=== PATIENT | female | born 2000 | race African-American/Black ===

== ENCOUNTER 2022-01-25 18:32 | Emergency (ER) | payer OTHER, SELFPAY ==
--- NOTE | ~2022-01-25 | CT_ITS ---
EXAMINATION: CT brain wo con DATE: 01/26/2022 05:30 INDICATION: Altered mental status. TECHNIQUE: Computed tomography (CT) of the head was performed without intravenous contrast. The mA wa s adjusted according to patient size. Iterative reconstruction technique was employed. The dose-lengt h product was 605.33 mGy-cm. COMPARISON: None FINDINGS: There is no intracranial hemorrhage, acute infarction, or abnormal intracranial mass lesion . The ventricles are normal in size. There is mild mucosal thickening in the paranasal sinuses. The o rbits are normal. The mastoid air cells are normal. IMPRESSION: 1. Normal brain. Reviewed, dictated and finalized at location A. IMPRESSION: 1. Normal brain.
[2022-01-25 18:58] VITALS: BP 134/88; PULSE 82; RESP 16; TEMP 37.2; O2SAT 99
--- NOTE | 2022-01-25 19:06 | ED.GENADULT ---
HPI - General Adult General Chief complaint: Psychiatric Symptoms <Ananth Ca MD - Last Filed: 01/25/22 21:54> Stated complaint: MENTAL BREAK? <Ananth Ca MD - Last Filed: 01/25/22 21:54> Time Seen by Provider: 01/25/22 18:40 <Ananth Ca MD - Last Filed: 01/25/22 21:54> History of Present Illness HPI narrative: 21-year-old female presented emerged department for evaluation of a change in her mental status. Family states that over the last 2 to 3 days patient has had more erratic behavior. Patient has been more social and is hugging more. They also stated that she has been more agitated and has been pacing and doodling. Patient denies taking any drugs or medications with the intent of self-harm. Patient did not answer the question about her being suicidal. Patient does admit to smoking marijuana. Patient did have her mother in October. <Ananth Ca MD - Last Filed: 01/25/22 21:54> Related Data Allergies/adverse reactions: Allergies Allergy/AdvReac Type Severity Reaction Status Date / Time No Known Allergies Allergy Verified 01/26/22 01:07 <Ananth Ca MD - Last Filed: 01/25/22 21:54> Review of Systems Review of Systems: CONSTITUTIONAL: Denies fever, chills, or sweats. EYES: Denies visual changes, redness, or discharge. ENT: Denies rhinorrhea, congestion, sore throat, or otalgia. CARDIOVASCULAR: Denies chest pain, palpitations, or edema. RESPIRATORY: Denies cough or dyspnea. GASTROINTESTINAL: Denies abdominal pain, nausea, vomiting, or diarrhea. GENITOURINARY: Denies dysuria or hematuria. SKIN: Denies rash or itching. MUSCULOSKELETAL: Denies back pain, joint pain, or myalgia. NEUROLOGIC: Denies headache, numbness, or weakness. PSYCHIATRIC: Change in behavior, see HPI <Ananth Ca MD - Last Filed: 01/25/22 21:54> PMFSH Social History Social History: Social History Substance use type: marijuana <Ananth Ca MD - Last Filed: 01/25/22 21:54> Exam Narrative: APPEARANCE: Well appearing, no pain, no distress, well-nourished. HEAD: normocephalic, atraumatic. EYES: PERRLA/EOMI, conjunctivae clear. NOSE: Normal no drainage EARS:TMS clear with good light reflex. THROAT: Pharynx clear, no exudate. NECK: Supple. No adenopathy, no masses. RESPIRATORY: Airway patent, respirations nonlabored. Clear to auscultation bilaterally, no rales, rhonchi, wheezing. CARDIOVASCULAR: Regular rate and rhythm without murmurs rubs or gallops. ABDOMINAL: Soft, nontender, nondistended, normal bowel sounds MUSCULOSKELETAL: Moves all extremities. Strength/ROM intact, No edema, No calf tenderness. NEURO: Alert. Cranial nerves II through XII intact. Grossly intact SKIN: Warm, dry. Normal Color <Ananth Ca MD - Last Filed: 01/25/22 21:54> Course Course Emergency Course: Patient continues to deny homicidal suicidal ideation. Patient stated that my mom was drama and she gave me all the drama. Patient and family were updated on the results of the work-up and the crisis counselor will be paged. Patient currently signed out to Dr. Kent. <Ananth Ca MD - Last Filed: 01/25/22 21:54> Reevaluation(s) Reevaluation #1: Patient is medically cleared to be evaluated by the crisis counselor. Patient is medically cleared for transport and inpatient psychiatric hospitalization is needed. <Ananth Ca MD - Last Filed: 01/25/22 21:54> Reevaluation #2: After conferring with crisis it is felt best that patient be hospitalized against her well for further evaluation of her mental state. Patient continues to demonstrate bizarre behavior in your with poor communication and wandering around the ER. Order reports she has been wandering out of her home and yelling at neighbors. Feels like there is been a growth change in her behavior which she cannot verbalize why she directed moist areas. This may represent major depressive disorder with
[2022-01-25 19:59] LABS: Basophils Absolute Auto 0.1 K/mm3 (0.0-0.1); Basophils Percent Auto 0.4 % (0.2-1.2); Hematocrit 37.3 % (37.0-47.0); Hemoglobin 12.3 g/dL (12.0-15.0); Immature Granulocyte Absolute 0.03 K/mm3 (0.00-0.031); Immature Granulocyte Percent A 0.2 % (0-0.5); Lymphocytes Absolute Auto 1.67 K/mm3 (0.9-3.2); Lymphocytes Percent Auto 12.5 % (18.3-44.2); Mean Corpuscular Hemoglobin 26.4 pg (26-34); Mean Platelet Volume 11.6 fl (7.4-10.4); Monocytes Percent Auto 7.2 % (2.6-8.5); Neutrophils Absolute Auto 10.7 K/mm3 (1.3-6.7); Neutrophils Percent Auto 79.7 % (45.5-73.1); Platelet Count Result 266 k/mm3 (150-375); Red Blood Count 4.66 M/mm3 (4.2-5.4); Red Cell Distribution Width 14.2 % (11.5-14.5); White Blood Count 13.4 K/mm3 (4.5-10.0)
[2022-01-25 20:08] LABS: Ethanol < 10 mg/dL (<10)
[2022-01-25 20:09] LABS: Alanine Aminotransferase 17 U/L (6-35); Alkaline Phosphatase 71 U/L (38-126); Anion Gap 15 mmol/L (8-16); Aspartate Amino Transferase 30 U/L (14-36); Bilirubin,Total 0.7 mg/dL (0.2-1.3); Blood Urea Nitrogen 15 mg/dL (7-17); Calcium 9.5 mg/dL (8.4-10.2); Carbon Dioxide 23 mmol/L (22-30); Chloride 102 mmol/L (98-107); Estimated Glomerular Filt Rate > 60; Glucose 105 mg/dL (65-110); Potassium 3.3 mmol/L (3.4-5.0); Sodium 140 mmol/L (137-145)
[2022-01-25 20:09] LABS: Acetaminophen < 10 ug/mL (10-30); Salicylate < 1.0 mg/dL (2-20)
[2022-01-25 20:29] LABS: Appearance Urine Clear (Clear); Bilirubin Urine 1+ (Negative); Blood Urine Negative (Negative); Color Urine Yellow (Yellow); Glucose Urine UA Negative (Negative); Ketones Urine 3+ mg/dL (Negative); Leukocyte Esterase Ur Negative LEU/UL (Negative); Nitrate Urine Negative (Negative); Protein Urine 2+ mg/dL (Negative); Specific Grav Ur 1.025 (1.001-1.035); Urobilinogen Urine 0.2 mg/dL (<2.0); pH Urine 6.5 (5.0-9.0)
[2022-01-25 20:35] LABS: SARS-CoV-2 RNA PCR Negative
[2022-01-25 20:44] LABS: Add Urine Microscopic? YES; Mucus Urine Heavy /lpf; Squamous Epithelial Cell Urine Many /hpf (Few); WBC Urine 0-3 /hpf
[2022-01-25 21:43] LABS: Amphetamine Screen Urine Negative (Negative); Barbiturate Screen Urine Negative (Negative); Benzodiazepines Screen Urine Negative (Negative); Cannabinoid Screen Urine Positive (Negative); Cocaine Screen Urine Negative (Negative); Methadone Screen Urine Negative (Negative); Opiate Screen Urine Negative (Negative); Phencyclidine Screen Urine Negative (Negative)
--- NOTE | 2022-01-25 21:53 | PC.NURSE ---
Addendum entered by Mariaelena Rodriguez RN 01/25/22 22:45: Pt does not qualify for [facility] Original Note: Crisis contacted for evaluation
--- NOTE | 2022-01-25 22:46 | PC.NURSE ---
2150- Pt medically cleared by Dr. Kent
--- NOTE | 2022-01-25 23:11 | PC.NURSE ---
Per CRISIS caser up pt is going to be involuntary petitioned. When team attempted to talk with pt, pt stood up and wandered out of room and sat next to registration. Pt then was redirected by [facility]us back to room 15. Pt was visually confused and disorganized in thinking when making statements. Pt is currently laying in stretcher in room 15 under blanket. CRISIS attempt to talk with pt is unsuccessful.
--- NOTE | 2022-01-26 03:41 | PC.NURSE ---
pt chart faxed to [facility] per their request at 01:25 on 01/26/2022
--- NOTE | 2022-01-26 05:16 | PC.NURSE ---
0510 [facility] doctor requesting CT scan of head
--- NOTE | 2022-01-26 05:34 | PC.NURSE ---
[facility] declined at 05:34. Shanti stated they will not be able to accept her unless she is able to voluntary sign herself in.
--- NOTE | 2022-01-26 06:28 | PC.NURSE ---
[facility] called and spoke with this RN. Requests we fax NEGATIVE test result. Faxed by ED secretary office clerk.
--- NOTE | 2022-01-26 06:44 | PC.NURSE ---
pt accepted by [facility] at 0644am on 01/26/2022. Accepting Dr. Fernandez and room 209 A.
--- NOTE | 2022-01-26 06:52 | PC.NURSE ---
called [facility] to request transport. ETA [phone]
--- NOTE | 2022-01-26 07:04 | PC.NURSE ---
Michele FIELD contact phone number is [phone]
== END 2022-01-26 07:31 ==
PROVIDERS: Emergency Provider Emergency Medicine
DX: F23 Brief psychotic disorder (principal); F32.9 Major depressive disorder, single episode, unspecified; Z20.822 Contact with and (suspected) exposure to COVID-19
CPT/HCPCS: 36415; 70450; 80053; 80307; 81001; 81025; 84443; 85025; 99285; U0003; U0005